=== PATIENT | male | born 1995 | race Caucasian/White ===

== ENCOUNTER 2019-05-25 19:22 | Emergency (ER) | payer OTHER ==
[~2019-05-25] VITALS: Ht 177.8 cm; Wt 95.2 kg
--- OUTSIDE RECORDS SUMMARY | ~2019-05-25 | XMS | Clinical Summary ---
Demographics + + + | Address | [address] | | | [place] [address] | + + + | Home Phone | | + + + | Preferred Language | Unknown | + + + | Marital Status | Single | + + + | Yarsani Affiliation | Unknown | + + + | Race | Unknown | + + + | Ethnic Group | Unknown | + + + Author + + + | Author | [facility] (Historical as of | | | 03-26-19) | + + + | Organization | [facility] (Historical as of | | | 03-26-19) | + + + | Address | Unknown | + + + | Phone | Unavailable | + + + Support + + +---------+ + | Name | Relationship | Address | Phone | + + +---------+ + | Detailed,Message | ECON | Unknown | | + + +---------+ + Care Team Providers + +------+ + | Care Claims Assistant Name | Role | Phone | + +------+ + | Prudencio Taylor DO | PP | Unavailable | + +------+ + Allergies Not on File Current Medications No known medications Active Problems + + + | Problem | Noted Date | + + + | Anxiety and depression | 12/11/2017 | + + + | Sinus bradycardia | 12/11/2017 | + + + Family History + +------+--------+ + | Relation | Name | Status | Comments | + +------+--------+ + | Father | | Alive | | + +------+--------+ + | Mother | | Alive | | + +------+--------+ + | Sister | | Alive | | + +------+--------+ + Social History + +-------+ +--------+------+ | Tobacco Use | Types | Packs/Day | Years | Date | | | | | Used | | + +-------+ +--------+------+ | Light Tobacco Smoker | | | | | + +-------+ +--------+------+ + +---+---+---+ | Smokeless Tobacco: | | | | | Never Used | | | | + +---+---+---+ + + +---------+ + | Alcohol Use | Drinks/We | oz/Week | Comments | | | ek | | | + + +---------+ + | No | | | | + + +---------+ + + + + | Sex Assigned at | Date Recorded | | | | + + + | Not on file | | + + + Last Filed Vital Signs + + + + | Vital Sign | Reading | Time Taken | + + + + | Blood Pressure | 121/62 | 12/11/2017 10:57 AM PDT | + + + + | Pulse | 75 | 12/11/2017 10:57 AM PDT | + + + + | Temperature | 37.3 C (99.1 F) | 12/11/2017 10:57 AM PDT | + + + + | Respiratory Rate | 20 | 12/11/2017 10:57 AM PDT | + + + + | Oxygen Saturation | 98% | 12/11/2017 10:57 AM PDT | + + + + | Inhaled Oxygen | - | - | | Concentration | | | + + + + | Weight | 78.6 kg (173 lb 4.8 | 12/11/2017 10:57 AM PDT | | | oz) | | + + + + | Height | 175.3 cm (5' 9") | 12/11/2017 10:57 AM PDT | + + + + | Body Mass Index | 25.59 | 12/11/2017 10:57 AM PDT | + + + + Plan of Treatment Not on file Results Not on filefrom Last 3 Months Insurance +---------+--------+ +------+-------+ + | Payer | Benefi | Subscriber | Type | Phone | Address | | | t Plan | ID | | | | | | / | | | | | | | Group | | | | | +---------+--------+ +------+-------+ + | PREMERA | PREMER | [id number] | | | [address] [address] | | | A BLUE | [address] | | | [place] | | | CARD | | | | [phone] | +---------+--------+ +------+-------+ + + +--------+ +--------+ + + | Guarantor Name | Accoun | Relation to | Date | Phone | Billing Address | | | t Type | Patient | of | | | | | | | | | | + +--------+ +--------+ + + | DEMETRIA HOPE | Person | Father | [birth year] | Home: | [address] | | | al/Fam | | 1968 | [phone] | [place] [address] | | | gena | | [phone] | | + +--------+ +--------+ + +
--- OUTSIDE RECORDS SUMMARY | ~2019-05-25 | XMS | Clinical Summary ---
Demographics + + + | Address | [address] | | | [place] [address] | + + + | Home Phone | | + + + | Preferred Language | Unknown | + + + | Marital Status | Single | + + + | Mormon Affiliation | Unknown | + + + | Race | Unknown | + + + | Ethnic Group | Unknown | + + + Author + + + | Author | [facility] (Historical as of | | | 03-26-19) | + + + | Organization | [facility] [employer] (Historical as of | | | 03-26-19) [...] Team Providers + +------+ + | Care C2 Tactical Analysis Technician Name | Role | Phone | + [...] +------+-------+ + | PREMERA | PREMER | [id number] | | | [address] [address] | | | A BLUE | [address] | | | [place] | | | CARD | | | | [phone] | +---------+--------+ +------+-------+ + + +--------+ +--------+ + + | Guarantor Name | Accoun | Relation to | Date | Phone | Billing Address | | | t Type | Patient | of | | | | | | | | | | + +--------+ +--------+ + + | DEMETRIA HOPE | Person | Father | [birth year] | Home: | [address] | | | al/Fam | | 1968 | [phone] | [place] [address] | | | gena | | | [phone] | | + +--------+ +--------+ + +
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
[2019-05-25] MEDS ORDERED: SEROQUEL300 MG PO (19:36)
[2019-05-25] MEDS ORDERED: LITHIUM CARBON300 M1 PO (19:37)
[2019-05-25] MEDS ORDERED: PRISTIQ ER25 MG PO (19:37)
[2019-05-25] MEDS ORDERED: DEPAKOTE ER250 MG PO (19:39)
[2019-05-25] MEDS ORDERED: CLONAZEPAM1 MG PO (19:41)
[2019-05-25] MEDS ORDERED: VIIBRYD10 MG PO (19:42)
[2019-05-25] MEDS ORDERED: VRAYLAR1.5 MG PO (19:42)
[2019-05-25] MEDS ORDERED: L-METHYLFOLATE15 M1 PO (19:43)
== END 2019-05-25 22:00 | disposition home or self-care (01) ==
LOC: ED 19:22
DX: Z04.1 Encounter for examination and observation following transport accident (principal); F31.9 Bipolar disorder, unspecified; Z79.899 Other long term (current) drug therapy
CPT/HCPCS: 80053; 80164; 80178; 81001; 85025; 96361; 96374; 99284-25; G0480; J2405; J7030

== ENCOUNTER 2021-03-20 01:32 | Emergency (ER) | payer OTHER ==
[~2021-03-20] VITALS: Ht 177.8 cm; Wt 95.2 kg
[~2021-03-20 01:32] MED LIST: CLONAZEPAM1 MG PO; DEPAKOTE ER250 MG PO; L-METHYLFOLATE15 M1 PO; LITHIUM CARBON300 M1 PO; PRISTIQ ER25 MG PO; SEROQUEL300 MG PO; VIIBRYD10 MG PO; VRAYLAR1.5 MG PO
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
== END 2021-03-20 03:38 | disposition home or self-care (01) ==
LOC: ED 01:32
DX: S61.411A Laceration without foreign body of right hand, initial encounter (principal); S61.511A Laceration without foreign body of right wrist, initial encounter; W25.XXXA Contact with sharp glass, initial encounter; F17.200 Nicotine dependence, unspecified, uncomplicated; Z79.899 Other long term (current) drug therapy
CPT/HCPCS: 12002; 73130; 99283-25

== ENCOUNTER 2025-05-31 11:11 | Emergency (ER) | payer OTHER ==
[~2025-05-31] VITALS: Ht 177.8 cm; Wt 99.5 kg
[2025-05-31] MEDS ORDERED: CYCLOBENZAPRINE10 MG (11:33)
[2025-05-31 12:00] LABS: BASOPHILS 0.5 % (0.2-1.2); EOSINOPHILS 2.0 % (0.8-7.0); LYMPHOCYTES 33.4 % (21.8-53.1); MCH 30.0 PG (25.7-32.2); MCHC 35.1 g/dL (32.3-36.5); MCV 85.4 fL (79.0-92.2); MONOCYTES 6.8 % (5.3-12.2); NEUTROPHILS 57.1 % (34.0-67.9); RBC 5.34 M/uL (4.63-6.08)
[2025-05-31] MEDS ORDERED: SODIUM CHLORIDE 0.9% 1,000 ML IV ONE (12:00)
[2025-05-31 12:24] LABS: ALT (SGPT) 44.0 U/L (14-59); AST (SGOT) 30.0 U/L (15-37); GLOMERULAR FILTRATION RATE,EST 124.0 mL/min (>60); PROTEIN, TOTAL 7.9 g/dL (6.4-8.2); UREA NITROGEN 10.0 mg/dL (7-18)
[2025-05-31 13:09] LABS: BLOOD/HGB, URINE NEGATIVE (Negative); KETONE, URINE NEGATIVE (Negative); LEUK ESTERASE, URINE NEGATIVE (negative); NITRITE, URINE NEGATIVE (negative)
[2025-05-31] MEDS ORDERED: PREDNISONE20 MG PO (13:19)
[2025-05-31] MEDS ORDERED: DICYCLOMINE HCL20 MG PO (13:19)
[2025-05-31 13:34] VITALS: BP 125/78
== END 2025-05-31 13:34 | disposition home or self-care (01) ==
LOC: ED 11:11
PROVIDERS: Emergency Medicine
DX: K51.30 Ulcerative (chronic) rectosigmoiditis without complications (principal); F17.200 Nicotine dependence, unspecified, uncomplicated
CPT/HCPCS: 36415; 74177; 80053; 81003; 83690; 85025; 96360; 99284-25; J7030; Q9967

== ENCOUNTER 2025-06-16 13:34 | Emergency (ER) | payer OTHER ==
[~2025-06-16] VITALS: Ht 177.8 cm; Wt 98.1 kg
[~2025-06-16 13:34] MED LIST changes: +CYCLOBENZAPRINE10 MG; +DICYCLOMINE HCL20 MG PO; +PREDNISONE20 MG PO
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
[2025-06-16 14:40] LABS: BASOPHILS 0.3 % (0.2-1.2); EOSINOPHILS 0.3 % (0.8-7.0); LYMPHOCYTES 13.0 % (21.8-53.1); MCH 29.4 PG (25.7-32.2); MCHC 34.6 g/dL (32.3-36.5); MCV 85.0 fL (79.0-92.2); MONOCYTES 3.9 % (5.3-12.2); NEUTROPHILS 82.2 % (34.0-67.9); RBC 5.54 M/uL (4.63-6.08)
[2025-06-16 14:49] LABS: ALT (SGPT) 38.0 U/L (14-59); AST (SGOT) 26.0 U/L (15-37); GLOMERULAR FILTRATION RATE,EST 125.0 mL/min (>60); PROTEIN, TOTAL 8.4 g/dL (6.4-8.2); UREA NITROGEN 11.0 mg/dL (7-18)
[2025-06-16] MEDS ORDERED: DICYCLOMINE HCL 10 MG CAP PO ONE (15:15)
[2025-06-16] MEDS ORDERED: DICYCLOMINE HCL20 MG PO (15:29)
[2025-06-16] MEDS ORDERED: ONDANSETRON ODT8 MG PO (15:29)
[2025-06-16 15:46] VITALS: BP 142/89
== END 2025-06-16 15:48 | disposition home or self-care (01) ==
LOC: ED 13:34
PROVIDERS: Emergency Medicine
DX: R10.9 Unspecified abdominal pain (principal); F17.200 Nicotine dependence, unspecified, uncomplicated
CPT/HCPCS: 36415; 80053; 83690; 85025; 96374; 99284-25; J2405